=== PATIENT | male | born 1960 ===

== ENCOUNTER → 2018-07-11 | Outpatient (CLI) | payer MEDICARE | LOC: C.CTH 08:24 | DX: K43.9 Ventral hernia without obstruction or gangrene (principal); R10.31 Right lower quadrant pain ==

== ENCOUNTER 2018-08-18 06:51 | Day surgery (SDC) | payer MEDICARE | END 2018-08-18 09:34 | disposition home or self-care (01) | LOC: C.ENDO 06:51 | DX: R19.4 Change in bowel habit (principal) ==

== ENCOUNTER 2018-08-20 06:04 | Day surgery (SDC) | payer MEDICARE ==
[2018-08-18 07:12] VITALS: BMI 26.6
[2018-08-20 06:55] VITALS: O2SAT 100
--- NOTE | 2018-08-20 07:50 | CP.SDSHP ---
Same Day Surgery H & P - History Proposed Procedure: EGD Pre-Op Diagnosis: SEE NOTES - Previous Medical/Surgical History Neuro: Backaches Misc: Other Pain: 4.Moderate Pain - Allergies Allergies: Allergies No Known Allergies Allergy (Verified 08/20/18 06:54) - Physical Exam General Appearance: N Vital Signs: Vital Signs 08/20/18 06:44 Temperature 97 F L Pulse Rate 80 Respiratory 20 Rate Blood Pressure 127/84 O2 Sat by Pulse 100 Oximetry Mental Status: Alert & Oriented x3 Neuro: WNL Heart: WNL Lungs: WNL GI: Other - {Optional Preform as Required} Breast: WNL Abdomen: Other Rectal: Other Integument: WNL : WNL Ortho: Other ENT: WNL - Impression Pt. Evaluated Today:Candidate for Anesthesia & Procedure: Yes - Date & Time Time: 07:50 Short Stay Discharge - Short Stay Discharge Admitting Diagnosis/Reason for Visit: DYSPEPSIA Disposition: HOME/ ROUTINE
[2018-08-20] MEDS ORDERED: Lactated Ringer's 500 ML IV ONE ×2 (07:51)
[2018-08-20] MEDS ORDERED: Propofol 10 mg/ml Inj (20 ML) ONE (07:55)
[2018-08-20] MEDS ORDERED: Belladonna-Phenobarbital PO ONE (08:25)
[2018-08-20 09:08] VITALS: TEMP 96.8
[2018-08-20 09:14] VITALS: BP 123/89; PULSE 61; RESP 11
== END 2018-08-20 09:30 | disposition home or self-care (01) ==
LOC: C.ENDO 06:04
PROVIDERS: ATTEND Specialist
DX: K25.9 Gastric ulcer, unspecified as acute or chronic, without hemorrhage or perforation (principal); K44.9 Diaphragmatic hernia without obstruction or gangrene; K29.50 Unspecified chronic gastritis without bleeding
CPT/HCPCS: 43239; 88305; 88342; J2001; J2704; J7120

== ENCOUNTER 2018-08-23 06:41 | Emergency (ER) | payer MEDICARE ==
[2018-08-23 06:42] VITALS: BMI 26.6
[2018-08-23 06:51] VITALS: RESP 18
[2018-08-23] MEDS ORDERED: DiphenhydrAMINE 50 mg/ml Inj IVP STA (07:23)
[2018-08-23] MEDS ORDERED: MethylPREDNISolone 40 mg Vial IVP STA (07:23)
[2018-08-23] MEDS ORDERED: Sodium Chloride 0.9% 1,000 ML IV STA (07:24)
--- NOTE | 2018-08-23 07:25 | C.PDOC ---
History Of Present Illness 57 years old male presents to ED for complaints of developing an allergic reaction to an unknown source after he woke up today. Patient states no known allergies. Patient reports lips and cheeks swelling. Denies shortness of breath, throat pain, drooling, or any other physical complaints. Time Seen by Provider: 08/23/18 07:16 Chief Complaint (Nursing): Allergic Reaction History Per: Patient History/Exam Limitations: no limitations Onset/Duration Of Symptoms: Hrs Current Symptoms Are (Timing): Still Present Possible Cause: Unknown Associated Symptoms: Swelling Home/EMS Treatment: None Recent travel outside of the [place]: No Past Medical History Reviewed: Historical Data, Nursing Documentation, Vital Signs Vital Signs: Last Vital Signs Temp 97.6 F 08/23/18 06:48 Pulse 70 08/23/18 06:48 Resp 18 08/23/18 06:48 BP 131/83 08/23/18 06:48 Pulse Ox 100 08/23/18 06:48 - Medical History PMH: Back Problems, Gastritis, Hypercholesterolemia Denies: Chronic Kidney Disease Surgical History: Back Surgery, Endoscopy - [facility] Procedures ESOPHAGOGASTRODUODENOSCOPY [EGD] W/CLOSED BIOPSY (05/03/14) Family History: States: Unknown Family Hx - Social History Hx Tobacco Use: No Hx Alcohol Use: Yes Hx Substance Use: No - Immunization History Hx Tetanus Toxoid Vaccination: No Hx Influenza Vaccination: No Hx Pneumococcal Vaccination: No Review Of Systems Except As Marked, All Systems Reviewed And Found Negative. ENT: Negative for: Other (Drooling ) Respiratory: Negative for: Shortness of Breath Physical Exam - Physical Exam Additional Physical Exam Comments: Constitutional: No acute distress. Head: Normocephalic. Atraumatic. Eyes: PERRL. ENT: Moist mucous membranes. No Drooling. No Tongue swelling. Neck: Supple. Cardiovascular: Regular rate. Radial pulse 2+ bilaterally. Chest: No tenderness. Respiratory: Clear to auscultation bilaterally. No wheezing. No stridor. GI: Soft. Nontender. Nondistended. Back: No CVA tenderness. Musculoskeletal: No tenderness or swelling of extremities. Skin: Swelling to lower lip and cheeks. No rash. Neurologic: Alert, no focal deficit. ED Course And Treatment - Laboratory Results Result Diagrams: 08/23/18 07:32 08/23/18 07:32 O2 Sat by Pulse Oximetry: 100 (RA) Pulse Ox Interpretation: Normal Medical Decision Making Medical Decision Making: Plan: * Blood work * Benadryl * Pepcid * Methylprednisolone * IV Fluids 3 hour observation, swelling improved, patient feels well. Discharged home, continue medications, f/u PMD, return to ED immediately for worsening swelling or breathing difficulty. Disposition - Disposition Referrals: Jaleesa Posey MD [Staff Provider] - Disposition: HOME/ ROUTINE Disposition Time: 09:40 Condition: GOOD Prescriptions: DiphenhydrAMINE [Benadryl] 2 cap PO Q8 #25 cap Prednisone [Deltasone] 3 tab PO DAILY #12 tablet Instructions: Anaphylaxis (DC) Forms: [employer] (Algerian) - Clinical Impression Clinical Impression: Lip edema - PA / EDI ANALYST / Resident Statement MD/DO has reviewed & agrees with the documentation as recorded. - Scribe Statement Josef Reaves All medical record entries made by the Scribe were at my direction and perso shanika dictated by me. I have reviewed the chart and agree that the record accurately reflects my personal performance of the history, physical exam, medical decision making, and the department course for this patient. I have also personally directed, reviewed, and agree with the discharge instructions and disposition.
[2018-08-23] MEDS ORDERED: DiphenhydrAMINE 50 mg/ml Inj ONE (07:33)
[2018-08-23] MEDS ORDERED: Sodium Chloride 0.9% 1,000 ML ONE (07:34)
[2018-08-23 07:37] LABS: BASO % 0.4 % (0.0-2.0); EOS # 0.1 K/uL (0.0-0.7); EOS % 2.3 % (0.0-4.0); LYMPH # 3.6 K/uL (1.0-4.3); LYMPH % 57.5 % (20.0-40.0); MEAN CELL VOLUME 86.5 fL (80.0-94.0); MEAN CORPUSCULAR HEMOGLOBIN 28.6 pg (27.0-31.0); MEAN CORPUSCULAR HGB CONC 33.1 g/dL (33.0-37.0); MEAN PLATELET VOLUME 8.7 fL (7.2-11.7); MONO # 0.4 K/uL (0.0-0.8); MONO % 7.1 % (0.0-10.0); NEUT # 2.1 K/uL (1.8-7.0); NEUT % 32.7 % (50.0-75.0); RBC 5.58 Mil/uL (4.40-5.90); WHITE BLOOD COUNT 6.3 K/uL (4.8-10.8)
[2018-08-23 07:49] LABS: ALB/GLOB RATIO 1.5 (1.0-2.1); ALBUMIN 4.5 g/dL (3.5-5.0); ALT/SGPT 33 U/L (21-72); AST/SGOT 31 U/L (17-59); BLOOD UREA NITROGEN 16 mg/dL (9-20); CALCIUM 9.5 mg/dl (8.6-10.4); GFR NON-AFRICAN AMERICAN > 60
[2018-08-23 10:03] VITALS: BP 137/84; PULSE 62; TEMP 97.7; O2SAT 98
== END 2018-08-23 10:03 | disposition home or self-care (01) ==
LOC: C.ER 06:41
DX: R60.0 Localized edema (principal)
CPT/HCPCS: 80053; 85025; 96361; 96374; 96375; 99285; J1200; J2920; J7030